=== PATIENT | female | born 1960 | race Caucasian/White ===

== ENCOUNTER → 2016-05-21 | Outpatient (CLI) | payer BC ==
--- NOTE | 2016-05-21 15:00 | CT ---
EXAMINATION TYPE: CT sinus wo con DATE OF EXAM: 05/21/2016 2:56 PM COMPARISON: NONE HISTORY: 55-year-old female with chronic sinusitis CT DLP: 686.41 mGycm Automated exposure control for dose reduction was used. TECHNIQUE: Noncontrast axial views of the paranasal sinuses were obtained. Coronal reconstructions pe rformed. FINDINGS: Tiny 6 mm polyp or mucosal retention cyst along the lateral wall of the left maxillary sinus. There i s trace mucosal thickening along the anterior ethmoid air cells and roof of the left maxillary sinus with postsurgical changes of prior medial antrectomies. Additional resection extends to involve the s epta of the ethmoid air cells. There is no air-fluid level. Reactive hamzah- osteogenesis is not seen. There is no destruction of the osseous lucio of the paranasal sinuses. The osteomeatal complexes are widely patent. The imaged brain, sella, skull base and orbits are normal in appearance. Mastoid air cells and middle ear cavities are well pneumatized. Reformatted images confirm above findings. IMPRESSION: Prior FESS. Tiny 6 mm polyp or mucosal retention cyst left maxillary sinus with trace mucosal thicken ing along the sinus roof and within the anterior ethmoid air cells.
== END | disposition home or self-care (01) ==
LOC: RADCTMAIN 14:37
PROVIDERS: ATTEND Nurse Practitioner Family
DX: J34.89 Other specified disorders of nose and nasal sinuses (principal); Z98.890 Other specified postprocedural states
CPT/HCPCS: 70486

== ENCOUNTER → 2016-09-28 | Outpatient (CLI) | payer BC ==
[2016-09-28 11:57] LABS: Calcium 9.9 mg/dL (8.4-10.2); Magnesium 1.9 mg/dL (1.6-2.3)
== END | disposition home or self-care (01) ==
LOC: LABWHC1 10:31
PROVIDERS: ATTEND Internal Medicine Endocrinology, Diabetes & Metabolism
DX: E03.9 Hypothyroidism, unspecified (principal); E55.9 Vitamin D deficiency, unspecified; E06.3 Autoimmune thyroiditis
CPT/HCPCS: 36415; 82040; 82306; 82310; 83735; 84439; 84443; 84481

== ENCOUNTER → 2016-12-18 | Outpatient (CLI) | payer BC ==
--- NOTE | 2016-12-18 11:24 | BD ---
EXAMINATION TYPE: MG DEXA axial skeleton. DATE OF EXAM: 12/18/2016 COMPARISON: NONE CLINICAL HISTORY: POST MENOPAUSAL Height: 5'6 1/2 Weight: 144 FRAX RISK QUESTIONS: Alcohol (3 or more units per day): no Family History (Parent hip fracture): no Glucocorticoids (More than 3mos): no (Ex: prednisone, prednisolone, methylprednisolone, dexamethasone, and hydrocortisone). History of Fracture in Adulthood: yes Secondary Osteoporosis: 1. Type 1 Diabetes: no 2. Hyperthyroidism: no 3. Menopause before 45: no 4. Malnutrition: no 5. Chronic liver disease: no Rheumatoid Arthritis: no Current Tobacco Use: no RISK FACTORS HISTORY OF: Family History of Osteoporosis: Postmenopausal woman: MEDICATIONS: Thyroid Medications: Which medication: tetroxin How Lon years Additional Medications: xanax vitamin d Additional History: post menopausal EXAM MEASUREMENTS: Bone mineral densitometry was performed using the [employer]. Bone mineral density as measured about the Lumbar spine is: ----- L1-L4(G/cm2): 0.938 T Score Values are as follows: ----- L2: -2.2 ----- L3: -1.6 ----- L4: -2.5 ----- L1-L4: -2.0 Bone mineral density has: Decreased -5.1% since study of: 07/04/2014 Bone mineral density about the R hip (g/cm2): 0.788 Bone mineral density about the L hip (g/cm2): 0.814 T Score values are as follows: -----R Neck: -1.8 -----L Neck: -1.6 -----R Total: -2.0 -----L Total: -1.8 Bone mineral density has: Decreased -8.2% since study of: 07/04/2014 IMPRESSION: Osteopenia (T Score between -2.5 and -1 as noted by T score values L1-L4, Robin Hips There is slightly increased risk of fracture and the patient may be considered for treatment. Re-Screen 2-5 years. NOTE: T-SCORE=SD OF THE YOUNG ADULT MEAN.
== END | disposition home or self-care (01) ==
LOC: RADBDWWP 08:37
PROVIDERS: ATTEND Obstetrics & Gynecology
DX: M85.88 Other specified disorders of bone density and structure, other site (principal)
CPT/HCPCS: 77080

== ENCOUNTER → 2017-05-16 | Outpatient (CLI) | payer BC ==
[2017-05-16 08:15] LABS: Calcium 9.9 mg/dL (8.4-10.2)
[2017-05-16 08:29] LABS: T4, Free (Free Thyroxine) 1.1 ng/dL (0.78-2.19)
== END | disposition home or self-care (01) ==
LOC: LABWHC1 07:37
PROVIDERS: ATTEND Internal Medicine Endocrinology, Diabetes & Metabolism
DX: E03.9 Hypothyroidism, unspecified (principal); E06.3 Autoimmune thyroiditis; E55.9 Vitamin D deficiency, unspecified
CPT/HCPCS: 36415; 82310; 83970; 84439; 84443

== ENCOUNTER → 2017-08-13 | Outpatient (CLI) | payer BC ==
[2017-08-13 17:11] LABS: DHEA Sulfate 25.2 ug/dL (26.0-430.0)
[2017-08-13 18:04] LABS: ACTH 13.2 pg/mL (0.00-45.99)
== END ==
LOC: LABWHC1 08:08
PROVIDERS: ATTEND Internal Medicine Endocrinology, Diabetes & Metabolism
DX: R53.83 Other fatigue (principal)
CPT/HCPCS: 36415; 82024; 82533; 82607; 82627; 84146

== ENCOUNTER → 2018-02-10 | Outpatient (CLI) | payer BC ==
--- NOTE | 2018-02-10 09:59 | XR ---
EXAMINATION TYPE: XR chest 2V DATE OF EXAM: 02/10/2018 COMPARISON: 10/24/2010 HISTORY: Chronic sinusitis and cough for 3 weeks TECHNIQUE: Frontal and lateral views of the chest are obtained. FINDINGS: There is no focal air space opacity, pleural effusion, or pneumothorax seen. The cardiac silhouette size is within normal limits. The osseous structures are intact. Minimal multilevel dege nerative changes of the thoracic spine are noted. IMPRESSION: No acute cardiopulmonary process.
== END | disposition home or self-care (01) ==
LOC: RADXRMAIN 09:27
PROVIDERS: ATTEND Otolaryngology
DX: R05 Cough (principal)
CPT/HCPCS: 71046

== ENCOUNTER → 2018-02-18 | Outpatient (CLI) | payer BC | END | disposition home or self-care (01) | LOC: LABWHC1 07:56 | PROVIDERS: ATTEND Internal Medicine Endocrinology, Diabetes & Metabolism | DX: E03.9 Hypothyroidism, unspecified (principal) | CPT/HCPCS: 36415; 84443 ==

== ENCOUNTER → 2018-03-02 | Outpatient (CLI) | payer BC ==
[2018-03-02 11:43] LABS: Basophils % (A) 0 %; Eosinophils % (A) 1 %; HCT 42.3 % (34.0-46.0); HGB 13.6 gm/dL (11.4-16.0); Lymphocytes # (A) 1.3 k/uL (1.0-4.8); Lymphocytes % (A) 25 %; MCH 29.3 pg (25.0-35.0); MCHC 32.3 g/dL (31.0-37.0); MCV 90.9 fL (80.0-100.0); Mean Platelet Volume 6.7; Monocytes # (A) 0.3 k/uL (0-1.0); Monocytes % (A) 5 %; Neutrophils # (A) 3.5 k/uL (1.3-7.7); Neutrophils % (A) 67 %; Platelet Count 326 k/uL (150-450); RBC 4.65 m/uL (3.80-5.40); WBC 5.2 k/uL (3.8-10.6)
[2018-03-02 16:39] LABS: Immunoglobulin E 34.9 IU/mL (0.00-114.00)
[2018-03-02 19:09] LABS: Hemoglobin A1C 5.7 % (4.0-6.0)
[2018-03-03 09:58] LABS: Immunoglobulin M 94.2 mg/dL (40.0-280.0)
== END ==
LOC: LABWHC1 10:43
PROVIDERS: ATTEND Otolaryngology
DX: J30.89 Other allergic rhinitis (principal); R05 Cough
CPT/HCPCS: 36415; 82784; 82785; 82947; 83036; 85025

== ENCOUNTER → 2018-03-24 | Outpatient (CLI) | payer BC ==
[2018-03-24 09:45] LABS: Basophils % (A) 1 %; Eosinophils # (A) 0.1 k/uL (0-0.7); Eosinophils % (A) 2 %; HCT 42.6 % (34.0-46.0); HGB 13.4 gm/dL (11.4-16.0); Lymphocytes # (A) 1.7 k/uL (1.0-4.8); Lymphocytes % (A) 33 %; MCH 28.8 pg (25.0-35.0); MCHC 31.4 g/dL (31.0-37.0); MCV 91.6 fL (80.0-100.0); Mean Platelet Volume 6.7; Monocytes # (A) 0.3 k/uL (0-1.0); Monocytes % (A) 6 %; Neutrophils # (A) 3.1 k/uL (1.3-7.7); Neutrophils % (A) 57 %; Platelet Count 371 k/uL (150-450); RBC 4.65 m/uL (3.80-5.40); RDW 12.9 % (11.5-15.5); WBC 5.3 k/uL (3.8-10.6)
[2018-03-24 15:58] LABS: Albumin 4.6 g/dL (3.80-4.90); Albumin/Globulin Ratio 2.09 (1.20-2.10); Anion Gap 8.1 mmol/L (4.00-12.00); Calcium 9.8 mg/dL (8.7-10.3); Carbon Dioxide 27.9 mmol/L (21.6-31.8); Globulin 2.2 g/dL (2.1-3.7); LDL Cholesterol,Calculated 70.2 mg/dL (0.0-131.0); Magnesium 1.8 mg/dL (1.5-2.4); Potassium 4.1 mmol/L (3.5-5.5); Total Bilirubin 0.7 mg/dL (0.3-1.2); Total Protein 6.8 g/dL (6.2-8.2); VLDL Calculation 10.8 mg/dL (5.00-40.00)
[2018-03-24 16:05] LABS: T4, Free (Free Thyroxine) 1.3 ng/dL (0.80-1.80)
== END ==
LOC: LABWHC1 08:13
PROVIDERS: ATTEND Midwife
DX: Z00.00 Encounter for general adult medical examination without abnormal findings (principal); E03.9 Hypothyroidism, unspecified; E06.3 Autoimmune thyroiditis; E55.9 Vitamin D deficiency, unspecified
CPT/HCPCS: 36415; 80053; 80061; 82306; 83735; 84439; 84443; 84481; 85025

== ENCOUNTER → 2018-04-30 | Outpatient (CLI) | payer BC ==
[2018-04-30 18:00] LABS: T4, Free (Free Thyroxine) 1.3 ng/dL (0.80-1.80)
== END ==
LOC: LABWHC1 07:35
PROVIDERS: ATTEND Internal Medicine Endocrinology, Diabetes & Metabolism
DX: E06.3 Autoimmune thyroiditis (principal); E03.9 Hypothyroidism, unspecified; E55.9 Vitamin D deficiency, unspecified; E78.2 Mixed hyperlipidemia; K71.9 Toxic liver disease, unspecified; E86.0 Dehydration
CPT/HCPCS: 36415; 84439; 84443; 84481

== ENCOUNTER 2018-05-18 09:30 | Day surgery (SDC) | payer BC ==
[2018-05-14 12:05] VITALS: BMI 21.9
[~2018-05-18 09:30] MED LIST: LACTATED RINGERS 1,000 ML IV SCH
[2018-05-18] MEDS ORDERED: LIDOCAINE 1% 20 ML VIAL (10MG/ML) FOR IV START INTRADERMA ONE (10:00)
[2018-05-18 10:03] VITALS: TEMP 98.5
[2018-05-18] MEDS ORDERED: ONDANSETRON 4 MG/2 ML VIAL IVP ONE (10:06)
[2018-05-18] MEDS ORDERED: PROPOFOL 10 MG/ML 20 ML VIAL IV ONE (10:58)
[2018-05-18 11:35] VITALS: RESP 18
--- NOTE | 2018-05-18 11:38 | P.PCN ---
Date of Procedure: 05/18/18 Procedure(s) Performed: Procedure: 1. Esophagogastroduodenoscopy and biopsy. 2. Total colonoscopy. Preoperative diagnosis: Screening for colon cancer because of family history of colon cancer in her father and upper endoscopy for finding of a positive celiac serology. Postoperative diagnosis: 1. Mild gastritis and duodenitis. 2. Multiple biopsies obtained from the duodenum, antrum and esophagus. 3. Mild sigmoid diverticulosis with no evidence of acute diverticulitis or strictures or any polyps or tumors. Preparation: HalfLytely prep. Sedation: Was provided by anesthesia. Brief clinical history: The patient is a 57-year-old female who is scheduled for this evaluation for colon cancer screening because of family history of colon cancer in her father. Her prior exam was around 6 years ago. The patient , in addition, has been complaining of tiredness for the last 2 years or so and has history of Rosita's thyroiditis and her fundraising coordinator has ordered celiac serology panel which returned positive antigliadin antibody. This evaluation is to assess for celiac disease, colon neoplasia or other pathology. Procedure: With the patient on her left lateral decubitus position and after informed consent and adequate sedation, I passed the Olympus-GIF H1 90 video upper endoscope through the cricopharyngeus down the esophagus. GE junction was around 40 cm from the incisors and there was no definite hiatal hernia and no obvious esophagitis or complicated reflux disease. The endoscope was then passed into the stomach which was insufflated with air and inspected in detail including the retroflex view in the cardia. There was some mottling and erythema in the antrum but no ulcers or erosions. Pyloric channel did not show any ulcers. Duodenal bulb, post bulbar area and descending duodenum showed minimal erythema and minimal friability. I obtained biopsies from the duodenum , antrum and esophagus then the endoscope was withdrawn and I proceeded to perform the colonoscopy. Perianal area did not show any fissures or fistulas. There were no masses felt on digital rectal examination. The Olympus CFH 190L video colonoscope was then inserted in the rectum in the usual fashion and advanced to the cecum. There was few small diverticular orifices seen scattered in the sigmoid but I saw no evidence of acute diverticulitis or strictures. The mucosa appeared healthy. No polyps or tumors were seen. I retroflexed the endoscope in the rectum before the endoscope was withdrawn. The patient tolerated the procedure well. Plan: The patient was reassured. Discussed dietary measures. Will await biopsy results. I recommended repeat colonoscopy in 5 years because of her family history. She will follow-up with you as planned and I will be happy to see in the office if needed.
[2018-05-18 11:56] VITALS: BP 126/76; PULSE 77
== END 2018-05-18 12:12 | disposition home or self-care (01) ==
LOC: ORWHC2ENDO 09:30
DX: Z12.11 Encounter for screening for malignant neoplasm of colon (principal); K29.50 Unspecified chronic gastritis without bleeding; K29.80 Duodenitis without bleeding; K57.30 Diverticulosis of large intestine without perforation or abscess without bleeding; Z80.0 Family history of malignant neoplasm of digestive organs; R76.8 Other specified abnormal immunological findings in serum; E06.3 Autoimmune thyroiditis; F41.9 Anxiety disorder, unspecified; Z79.890 Hormone replacement therapy; Z79.899 Other long term (current) drug therapy
CPT/HCPCS: 88305; 43239; J2405; J2704; G0105; 45378

== ENCOUNTER → 2018-11-02 | Outpatient (CLI) | payer BC ==
[2018-11-02 17:51] LABS: T4, Free (Free Thyroxine) 1.3 ng/dL (0.80-1.80)
== END | disposition home or self-care (01) ==
LOC: LABWHC1 09:15
PROVIDERS: ATTEND Internal Medicine Endocrinology, Diabetes & Metabolism
DX: E06.3 Autoimmune thyroiditis (principal); K90.0 Celiac disease
CPT/HCPCS: 36415; 84439; 84443; 84481

== ENCOUNTER → 2018-11-10 | Outpatient (CLI) | payer BC ==
[2018-11-10 20:46] LABS: Iron Saturation 19.25 (12.00-45.00)
[2018-11-11 10:36] LABS: Lead, Blood 0.7 ug/dL (<5.0)
== END | disposition home or self-care (01) ==
LOC: LABWHC1 08:36
PROVIDERS: ATTEND Internal Medicine Endocrinology, Diabetes & Metabolism
DX: E06.3 Autoimmune thyroiditis (principal); E03.9 Hypothyroidism, unspecified; E55.9 Vitamin D deficiency, unspecified; Z13.0 Encounter for screening for diseases of the blood and blood-forming organs and certain disorders involving the immune mechanism
CPT/HCPCS: 36415; 82108; 82175; 82728; 83540; 83550; 83655; 83825; 84207; 84255; 85652; 86140

== ENCOUNTER → 2019-01-26 | Outpatient (CLI) | payer BC ==
[2019-01-26 15:58] LABS: T4, Free (Free Thyroxine) 0.9 ng/dL (0.80-1.80)
== END ==
LOC: LABWHC1 09:29
PROVIDERS: ATTEND Internal Medicine Endocrinology, Diabetes & Metabolism
DX: E06.3 Autoimmune thyroiditis (principal); E03.9 Hypothyroidism, unspecified; E55.9 Vitamin D deficiency, unspecified; Z13.0 Encounter for screening for diseases of the blood and blood-forming organs and certain disorders involving the immune mechanism
CPT/HCPCS: 36415; 82306; 84439; 84443; 84481

== ENCOUNTER → 2019-04-02 | Outpatient (CLI) | payer BC ==
[2019-04-02 09:54] LABS: Basophils % (A) 0 %; Eosinophils # (A) 0.1 k/uL (0-0.7); Eosinophils % (A) 1 %; HCT 42.7 % (34.0-46.0); HGB 14.2 gm/dL (11.4-16.0); Lymphocytes # (A) 1.6 k/uL (1.0-4.8); Lymphocytes % (A) 29 %; MCH 31.1 pg (25.0-35.0); MCHC 33.4 g/dL (31.0-37.0); Mean Platelet Volume 6.7; Monocytes # (A) 0.4 k/uL (0-1.0); Monocytes % (A) 6 %; Neutrophils # (A) 3.4 k/uL (1.3-7.7); Neutrophils % (A) 62 %; Platelet Count 369 k/uL (150-450); RBC 4.59 m/uL (3.80-5.40); RDW 12.3 % (11.5-15.5); WBC 5.5 k/uL (3.8-10.6)
[2019-04-02 16:14] LABS: ALT 14 U/L (8-44); AST 18 U/L (13-35); African American GFR (CKD) 92.9 (60.0-200.0); Albumin/Globulin Ratio 2.05 (1.60-3.17); Alkaline Phosphatase 81 U/L (41-126); Calcium 9.4 mg/dL (8.7-10.3); Carbon Dioxide 31.2 mmol/L (21.6-31.8); Chloride 104 mmol/L (96-109); Chol/HDL Ratio 1.75; Cholesterol 159 mg/dL (0-200); Globulin 2.2 g/dL (1.6-3.3); Glucose 94 mg/dL (70-110); Non-African American GFR(CKD) 80.1 (60.0-200.0); Potassium 4.4 mmol/L (3.5-5.5); Sodium 142 mmol/L (135-145); Total Bilirubin 0.7 mg/dL (0.3-1.2); Total Protein 6.7 g/dL (6.2-8.2); Triglycerides <50.0 mg/dL (0.0-149.0)
== END | disposition home or self-care (01) ==
LOC: LABWHC1 09:14
PROVIDERS: ATTEND Internal Medicine Endocrinology, Diabetes & Metabolism
DX: Z13.0 Encounter for screening for diseases of the blood and blood-forming organs and certain disorders involving the immune mechanism (principal); E03.9 Hypothyroidism, unspecified; E06.3 Autoimmune thyroiditis; E55.9 Vitamin D deficiency, unspecified
CPT/HCPCS: 36415; 80053; 80061; 82306; 84439; 84443; 84481; 85025

== ENCOUNTER → 2019-06-02 | Outpatient (CLI) | payer BC ==
--- NOTE | 2019-06-02 15:43 | BD ---
EXAMINATION TYPE: Axial Bone Density DATE OF EXAM: 06/02/2019 COMPARISON: 12/18/2016 CLINICAL HISTORY: Height: 66 IN Weight: 142 LBS RISK FACTORS HISTORY OF: Family History of Osteoporosis: YES GRANDMOTHER (M) Active: YES Diet low in dairy products/other sources of calcium: YES Postmenopausal woman: TOTAL HYST AGE 45 Take estrogen and/or progesterone medications: NOT NOW How long: AGE 47-50 MEDICATIONS: Thyroid Medications: YES Which medication: TIROSENT CYTOMEL How Lon + YEARS Additional Medications: TIROSENT, CYTOMEL, VIT D EXAM MEASUREMENTS: Bone mineral densitometry was performed using the [employer] System. Bone mineral density as measured about the Lumbar spine is: ----- L1-L4(G/cm2): 0.896 T Score Values are as follows: ----- L2: -2.5 ----- L3: -2.2 ----- L4: -2.7 ----- L1-L4: -2.4 Bone mineral density has: Decreased -4.6% since study of: 12/18/2016 Bone mineral density about the R hip (g/cm2): 0.801 Bone mineral density about the L hip (g/cm2): 0.810 T Score values are as follows: -----R Neck: -1.7 -----L Neck: -1.6 -----R Total: -2.1 -----L Total: -1.8 Bone mineral density has: Decreased -1.0% since study of: 12/18/2016 IMPRESSION: Osteoporosis (T Score less than -2.5). There is increased fracture risk and therapy is usually indicated based on age. Re-Screen 1-2 years. NOTE: T-SCORE=SD OF THE YOUNG ADULT MEAN.
== END | disposition home or self-care (01) ==
LOC: RADBDWWP 12:24
PROVIDERS: ATTEND Obstetrics & Gynecology
DX: M81.0 Age-related osteoporosis without current pathological fracture (principal); Z78.0 Asymptomatic menopausal state
CPT/HCPCS: 77080

== ENCOUNTER 2019-10-20 20:31 | Emergency (ER) | payer BC ==
--- NOTE | 2019-10-20 21:11 | XR ---
EXAMINATION TYPE: XR wrist complete RT DATE OF EXAM: 10/20/2019 COMPARISON: NONE HISTORY: Fall. Pain. TECHNIQUE: 4 views FINDINGS: IMPRESSION: There is impacted transverse fracture of the distal radial metaphysis. There is no significant displa cement. The carpal bones are intact. There is mild spurring at the first carpometacarpal joint. Metac arpals are intact. IMPRESSION: Acute intra-articular impacted comminuted transverse fracture of the distal radial metaphysis.
--- NOTE | 2019-10-20 21:14 | ED ---
Upper Extremity HPI - General Source: patient Mode of arrival: ambulatory Limitations: no limitations <Gladys Chen - Last Filed: 10/22/19 10:28> <Norma Reyes - Last Filed: 10/25/19 00:46> - General Chief Complaint: Extremity Injury, Upper Stated Complaint: fall/wrist pain Time Seen by Provider: 10/20/19 20:43 - History of Present Illness Initial Comments: 58-year-old female presenting today for chief complaint of right wrist pain. Patient states that she was getting up the ball onto the dock when she fell. Patient states that she extended her right wrist. Patient states she did not hit her head or lose consciousness. Patient denies any injury to the neck abdomen chest lower extremities or left upper extremity. Patient denies any numbness tingling loss of sensation. She states she has limited range of motion of the wrist secondary to pain. Patient states she is able to move all 5 digits of the right hand. Remaining review of systems negative upon arrival patient appears well signs of acute distress. Splinting wrist. (lGadys Chen) - Related Data Home Medications Medication Instructions Recorded Confirmed ALPRAZolam [Xanax] 0.5 mg PO DAILY PRN 05/14/18 10/20/19 Levothyroxine Sodium [Tirosint] 88 mcg PO DAILY 05/14/18 10/20/19 Allergies Allergy/AdvReac Type Severity Reaction Status Date / Time No Known Allergies Allergy Verified 10/20/19 20:41 Review of Systems ROS Other: All systems not noted in ROS Statement are negative. <Gladys Chen - Last Filed: 10/22/19 10:28> ROS Other: All systems not noted in ROS Statement are negative. <Norma Reyes - Last Filed: 10/25/19 00:46> ROS Statement: Those systems with pertinent positive or pertinent negative responses have been documented in the HPI. Past Medical History Past Medical History: Thyroid Disorder Additional Past Medical History / Comment(s): was told has 1 out of 4 antibodies for Celiac, carries gene for MTHFR, Rosita's History of Any Multi-Drug Resistant Organisms: None Reported Past Surgical History: Breast Surgery, Hysterectomy, Tonsillectomy, Tubal Ligation Additional Past Surgical History / Comment(s): sinus sx x2, mult benign breast bx left breast Past Anesthesia/Blood Transfusion Reactions: Postoperative Nausea & Vomiting (PONV) Past Psychological History: No Psychological Hx Reported Smoking Status: Never smoker Past Alcohol Use History: Occasional Past Drug Use History: None Reported - Past Family History Father Family Medical History: Cancer Additional Family Medical History / Comment(s): colon Mother Family Medical History: Deep Vein Thrombosis (DVT) <Gladys Chen - Last Filed: 10/22/19 10:28> General Exam Limitations: no limitations <Gladys Chen - Last Filed: 10/22/19 10:28> - General Exam Comments Initial Comments: General: The patient is awake and alert, in no distress Eye: +3 mm pupils are equal, round and reactive to light, extra-ocular movements are intact. No nystagmus. There is normal conjunctiva bilaterally. No signs of icterus. Ears, nose, mouth and throat: There are moist mucous membranes and no oral lesions. Neck: The neck is supple, there is no tenderness or JVD. Musculoskeletal: Upon inspection no gross deformity of the wrist. Compartments are soft and compressible of the right forearm/wrist. There is some mild scaphoid tenderness Refuses to rull range at the right wrist secondary to pain. No evidence of gross trauma. Able to move all 5 digits of the hand without any limitations in range of motion. Strength of the digits of her hand intact elbow and shoulder. Patient sustained past the right wrist pain Sensation intact proximal and distal to injury site. Radial pulses equal bilaterally 2+. Neurological: A&O x 3. CN II-XII intact grossly, There are no obvious motor or sensory deficits. Coordination appears grossly intact. Speech is normal. Skin: Skin is warm and dry and no rashes or lesions are noted. Psychiatric: Cooperative, appropriate mood & affect, normal judgment. (Gldays Chen) Course Vital Signs 10/20/19 20:37 Temperature 98.4 F Pulse Rate 74 Respiratory 16 Rate Blood Pressure 125/84 O2 Sat by Pulse 99 Oximetry Medical Decision Making <Gladys Chen - Last Filed: 10/22/19 10:28> <Norma Reyes - Last Filed: 10/25/19 00:46> - Medical Decision Making XR revealed a comminuted distal radius fracture, some displacement noted--intraarticular. Patient neurovascularly intact. Compartments soft and compressible. No pain out of proportion. Patient placed in a thumb spica splint and a clean for comfort. Repeat neurovascular exam after splint placement was intact. No change. Patient will be discharged with orthopedic f/u. Patient is agreeable to return parameters and outpatient f/u. Discharged appearing well after discussing case with Dr. Reyes (Gladys Chen) I was available for consultation in the emergency department. The history and physical exam were done by the midlevel provider. I was consulted for this patients care. I reviewed the case with the midlevel provider and based on their presentation of the patient, I agree with the assessment, medical decision making and plan of care as documented. Chart was dictated using [employer] dictation software. Attempts were made to c orrect any dictation errors however some typographical errors may persist. Patient was seen during a national state of emergency due to the Covid-19 pandemic. (Norma Reyes) Disposition Is patient prescribed a controlled substance at d/c from ED?: No Time of Disposition: 21:23 <Gladys Chen - Last Filed: 10/22/19 10:28> <Norma Reyes - Last Filed: 10/25/19 00:46> Clinical Impression: Distal radius fracture, Fracture of right distal radius, Fall Disposition: HOME SELF-CARE Condition: Good Instructions (If sedation given, give patient instructions): Wrist Fracture in Adults (ED) Additional Instructions: Please use medication as discussed. Please follow-up with orthopedics in the next 2-3 days with [facility]. Please return to emergency room if the symptoms increase or worsen or for any other concerns. Referrals: Ángel Sanchez MD [Primary Care Provider] - 1-2 days Scot Chaudhari DO [Doctor of Osteopathic Medicine] - 1-2 days
[2019-10-22 09:42] VITALS: BP 125/84; PULSE 74; RESP 16; TEMP 98.4
== END 2019-10-20 21:40 | disposition home or self-care (01) ==
LOC: EC 20:31
DX: S52.501A Unspecified fracture of the lower end of right radius, initial encounter for closed fracture (principal); E07.9 Disorder of thyroid, unspecified; Z79.890 Hormone replacement therapy; W19.XXXA Unspecified fall, initial encounter; Y92.89 Other specified places as the place of occurrence of the external cause
CPT/HCPCS: 29125; 99283

== ENCOUNTER → 2019-10-27 | Outpatient (CLI) | payer BC ==
[2019-10-27 19:51] LABS: T4, Free (Free Thyroxine) 1.2 ng/dL (0.80-1.80)
== END | disposition home or self-care (01) ==
LOC: LABWHC1 09:10
PROVIDERS: ATTEND Internal Medicine Endocrinology, Diabetes & Metabolism
DX: E03.9 Hypothyroidism, unspecified (principal); E06.3 Autoimmune thyroiditis; E55.9 Vitamin D deficiency, unspecified; Z13.0 Encounter for screening for diseases of the blood and blood-forming organs and certain disorders involving the immune mechanism
CPT/HCPCS: 36415; 82306; 84439; 84443; 84481

== ENCOUNTER → 2020-01-20 | Outpatient (CLI) | payer BC ==
[2020-01-20 18:22] LABS: T4, Free (Free Thyroxine) 1.2 ng/dL (0.80-1.80)
== END | disposition home or self-care (01) ==
LOC: LABWHC1 08:16
PROVIDERS: ATTEND Internal Medicine Endocrinology, Diabetes & Metabolism
DX: E78.2 Mixed hyperlipidemia (principal); E03.9 Hypothyroidism, unspecified; K71.9 Toxic liver disease, unspecified; E55.9 Vitamin D deficiency, unspecified; M81.6 Localized osteoporosis [Lequesne]
CPT/HCPCS: 36415; 84439; 84443; 84481

== ENCOUNTER → 2020-04-12 | Outpatient (CLI) | payer BC ==
[2020-04-12 09:27] LABS: Basophils % (A) 1 %; Eosinophils # (A) 0.1 k/uL (0-0.7); Eosinophils % (A) 2 %; HCT 37.5 % (34.0-46.0); HGB 12.3 gm/dL (11.4-16.0); Lymphocytes # (A) 1.5 k/uL (1.0-4.8); Lymphocytes % (A) 34 %; MCH 29.5 pg (25.0-35.0); MCV 89.5 fL (80.0-100.0); Mean Platelet Volume 6.4; Monocytes # (A) 0.2 k/uL (0-1.0); Monocytes % (A) 6 %; Neutrophils # (A) 2.3 k/uL (1.3-7.7); Neutrophils % (A) 55 %; Platelet Count 364 k/uL (150-450); RBC 4.18 m/uL (3.80-5.40); RDW 13.4 % (11.5-15.5); WBC 4.3 k/uL (3.8-10.6)
[2020-04-13 06:36] LABS: African American GFR (CKD) 92.2 (60.0-200.0); Albumin 4.4 g/dL (3.80-4.90); Albumin/Globulin Ratio 1.91 (1.60-3.17); Calcium 9.2 mg/dL (8.7-10.3); Chol/HDL Ratio 1.88; Globulin 2.3 g/dL (1.6-3.3); LDL Cholesterol,Calculated 73.2 mg/dL (0.0-131.0); Non-African American GFR(CKD) 79.6 (60.0-200.0); Total Bilirubin 0.7 mg/dL (0.2-1.2); Total Protein 6.7 g/dL (6.2-8.2); VLDL Calculation 11.8 mg/dL (5.00-40.00)
[2020-04-13 06:44] LABS: T4, Free (Free Thyroxine) 1.2 ng/dL (0.80-1.80)
== END | disposition home or self-care (01) ==
LOC: LABWHC1 08:34
PROVIDERS: ATTEND Internal Medicine Endocrinology, Diabetes & Metabolism
DX: Z00.00 Encounter for general adult medical examination without abnormal findings (principal); E78.2 Mixed hyperlipidemia; E03.9 Hypothyroidism, unspecified; K71.9 Toxic liver disease, unspecified; E55.9 Vitamin D deficiency, unspecified; M81.6 Localized osteoporosis [Lequesne]
CPT/HCPCS: 36415; 80053; 80061; 82306; 84439; 84443; 84481; 85025

== ENCOUNTER → 2020-11-22 | Outpatient (CLI) | payer BC ==
[2020-11-23 04:58] LABS: T4, Free (Free Thyroxine) 1.2 ng/dL (0.80-1.80)
== END | disposition home or self-care (01) ==
LOC: LABWHC1 08:54
PROVIDERS: ATTEND Internal Medicine Endocrinology, Diabetes & Metabolism
DX: E55.9 Vitamin D deficiency, unspecified (principal); E03.9 Hypothyroidism, unspecified; E78.2 Mixed hyperlipidemia; K71.9 Toxic liver disease, unspecified
CPT/HCPCS: 36415; 82306; 84439; 84443; 84481

== ENCOUNTER → 2021-03-26 | Outpatient (CLI) | payer BC ==
[2021-03-26 16:06] LABS: T4, Free (Free Thyroxine) 1.24 ng/dL (0.800-1.800)
== END | disposition home or self-care (01) ==
LOC: LABWHC1 09:38
PROVIDERS: ATTEND Internal Medicine Endocrinology, Diabetes & Metabolism
DX: E03.9 Hypothyroidism, unspecified (principal); E55.9 Vitamin D deficiency, unspecified; E78.2 Mixed hyperlipidemia
CPT/HCPCS: 36415; 82306; 84439; 84443; 84481

== ENCOUNTER → 2021-11-17 | Outpatient (CLI) | payer BC ==
[2021-11-17 17:35] LABS: T4, Free (Free Thyroxine) 1.29 ng/dL (0.800-1.800)
== END ==
LOC: LABWHC1 09:10
PROVIDERS: ATTEND Internal Medicine Endocrinology, Diabetes & Metabolism
DX: E03.9 Hypothyroidism, unspecified (principal); E06.3 Autoimmune thyroiditis; E55.9 Vitamin D deficiency, unspecified; E78.2 Mixed hyperlipidemia
CPT/HCPCS: 36415; 82306; 84439; 84443; 84481

== ENCOUNTER → 2022-02-23 | Outpatient (CLI) | payer BC ==
[2022-02-23 11:56] LABS: T4, Free (Free Thyroxine) 1.28 ng/dL (0.800-1.800)
== END | disposition home or self-care (01) ==
LOC: LABWHC1 08:15
PROVIDERS: ATTEND Internal Medicine Endocrinology, Diabetes & Metabolism
DX: E78.2 Mixed hyperlipidemia (principal); E03.9 Hypothyroidism, unspecified; E06.3 Autoimmune thyroiditis; E55.9 Vitamin D deficiency, unspecified
CPT/HCPCS: 36415; 82306; 84439; 84443; 84481

== ENCOUNTER → 2022-09-02 | Outpatient (CLI) | payer BC ==
--- NOTE | 2022-09-02 22:45 | BD ---
EXAMINATION TYPE: Axial Bone Density DATE OF EXAM: 09/02/2022 CLINICAL HISTORY: 61 years old Female. ICD-10 CODE: R03.9 HYPOTHYROIDISM Height: 62.8 Weight: 136 FRAX RISK QUESTIONS: nothing to note here RISK FACTORS HISTORY OF: hx of rt wrist fx as an adult, History of Wrist Fracture: yes, right wrist as an adult Family History of Osteoporosis: yes, grandmother Active: yes Postmenopausal woman: yes, at age 45 yrs old Take estrogen and/or progesterone medications: yes, in the past for about 2 yrs Hyperparathyroidism: no Adrenal Insufficiency: no MEDICATIONS: Prednisone or other steroids: yes, in the past for asthma, and inflammation 2x yrly Thyroid Medications: yes, tetroxin for about 13 yrs Additional Medications: xanax, vit d, Additional History: hypothyroidism, anxiety, EXAM MEASUREMENTS: Bone mineral densitometry was performed using the [employer] System. Bone mineral density as measured about the Lumbar spine is: ----- L1-L4(G/cm2): 0.819 T Score Values are as follows: ----- L1: -2.6 ----- L2: -3.1 ----- L3: -3.0 ----- L4: -3.4 ----- L1-L4: -3.0 Z Score Values are as follows: ----- L1: -1.0 ----- L2: -1.5 ----- L3: -1.4 ----- L4: -1.8 ----- L1-L4: -1.4 Bone mineral density has: Decreased -8.6% since study of: 06.02.2019 Bone mineral density about the R hip (g/cm2): 0.692 Bone mineral density about the L hip (g/cm2): 0.714 T Score values are as follows: -----R Neck: -2.0 -----L Neck: -2.0 -----R Total: -2.5 -----L Total: -2.3 Z Score values are as follows: -----R Neck: -0.5 -----L Neck: -0.5 -----R Total: -1.3 -----L Total: -1.1 Bone mineral density has: Decreased -7.9% since study of: 06.02.2019 FRAX%s: The graph provided illustrates a 25.4% chance for a major osteoporotic fx and a 4.8% chance f or the hips probability for fx in 10 years time. IMPRESSION: Osteoporosis (T Score less than -2.5). There is increased fracture risk and therapy is usually indicated based on age. Re-Screen 1-2 years. NOTE: T-SCORE=SD OF THE YOUNG ADULT MEAN.
== END | disposition home or self-care (01) ==
LOC: RADBDWWP 10:30
PROVIDERS: ATTEND Internal Medicine Endocrinology, Diabetes & Metabolism
DX: M81.0 Age-related osteoporosis without current pathological fracture (principal); E03.9 Hypothyroidism, unspecified; E06.3 Autoimmune thyroiditis; E55.9 Vitamin D deficiency, unspecified; F41.9 Anxiety disorder, unspecified
CPT/HCPCS: 77080

== ENCOUNTER → 2022-09-19 | Outpatient (CLI) | payer BC ==
[2022-09-19 16:06] LABS: ALT 11 U/L (8-44); AST 14 U/L (13-35); Albumin 4.5 d/dL (3.8-4.9); Albumin/Globulin Ratio 1.88 Ratio (1.60-3.17); Alkaline Phosphatase 79 U/L (41-126); Blood Urea Nitrogen 13.8 mg/dL (9.0-27.0); Calcium 9.3 mg/dL (8.7-10.3); Carbon Dioxide 28.4 mmol/L (21.6-31.8); Chloride 102 mmol/L (96-109); Chol/HDL Ratio 1.83 Ratio; Globulin 2.4 d/dL (1.6-3.3); Glucose 96 mg/dL (70-110); LDL Cholesterol,Calculated 65.3 mg/dL (0.0-131.0); Potassium 4.2 mmol/L (3.5-5.5); Sodium 141 mmol/L (135-145); T4, Free (Free Thyroxine) 1.39 ng/dL (0.80-1.80); Total Bilirubin 0.5 mg/dL (0.3-1.2); Total Protein 6.9 d/dL (6.2-8.2)
[2022-09-19 20:36] LABS: Basophils # (A) 0.04 X 10*3/uL (0.00-0.10); Eosinophils # (A) 0.06 X 10*3/uL (0.04-0.35); Eosinophils % (A) 1.5 %; HCT 39.3 % (37.2-46.3); HGB 12.3 d/dL (12.0-15.0); Lymphocytes # (A) 1.17 X 10*3/uL (0.90-5.00); MCH 29.7 pg (27.0-32.0); MCHC 31.3 d/dL (32.0-37.0); MCV 94.9 FL (80.0-97.0); Mean Platelet Volume 9.4 FL (9.5-12.2); Monocytes # (A) 0.36 X 10*3/uL (0.20-1.00); Monocytes % (A) 8.9 %; NRBC Per 100 WBC 0 X 10*3/uL (0.00-0.01); Neutrophils # (A) 2.38 X 10*3/uL (1.80-7.70); Neutrophils % (A) 58.9 %; Platelet Count 325 X 10*3/uL (140-440); RBC 4.14 X 10*6/uL (4.10-5.20); RDW 12.6 % (11.5-14.5); WBC 4.04 X 10*3/uL (4.50-10.00)
== END | disposition home or self-care (01) ==
LOC: LABWHC1 08:38
PROVIDERS: ATTEND Family Medicine
DX: Z00.00 Encounter for general adult medical examination without abnormal findings (principal)
CPT/HCPCS: 36415; 80053; 80061; 82306; 84439; 84443; 85025

== ENCOUNTER → 2022-10-23 | Outpatient (CLI) | payer BC ==
[2022-10-23 17:10] LABS: Blood Urea Nitrogen 10.9 mg/dL (9.0-27.0); T4, Free (Free Thyroxine) 1.32 ng/dL (0.80-1.80)
[2022-10-23 17:11] LABS: Albumin 4.5 d/dL (3.8-4.9); Calcium 10.1 mg/dL (8.7-10.3)
== END | disposition home or self-care (01) ==
LOC: LABWHC1 08:20
PROVIDERS: ATTEND Internal Medicine Endocrinology, Diabetes & Metabolism
DX: E55.9 Vitamin D deficiency, unspecified (principal); E03.9 Hypothyroidism, unspecified; E06.3 Autoimmune thyroiditis
CPT/HCPCS: 36415; 82040; 82306; 82310; 82565; 83970; 84439; 84443; 84520

== ENCOUNTER → 2023-01-30 | Outpatient (CLI) | payer BC ==
[2023-01-30 18:48] LABS: T4, Free (Free Thyroxine) 1.21 ng/dL (0.80-1.80)
== END | disposition home or self-care (01) ==
LOC: LABWHC1 08:31
PROVIDERS: ATTEND Internal Medicine Endocrinology, Diabetes & Metabolism
DX: E55.9 Vitamin D deficiency, unspecified (principal); E03.9 Hypothyroidism, unspecified; E06.3 Autoimmune thyroiditis
CPT/HCPCS: 36415; 82306; 84439; 84443; 84481

== ENCOUNTER → 2023-07-22 | Outpatient (CLI) | payer BC ==
[2023-07-22 16:17] LABS: T4, Free (Free Thyroxine) 1.23 ng/dL (0.80-1.80)
== END | disposition home or self-care (01) ==
LOC: LABWHC1 11:09
PROVIDERS: ATTEND Internal Medicine Endocrinology, Diabetes & Metabolism
DX: E03.9 Hypothyroidism, unspecified (principal); E06.3 Autoimmune thyroiditis; E55.9 Vitamin D deficiency, unspecified
CPT/HCPCS: 36415; 84439; 84443; 84481

== ENCOUNTER → 2024-08-05 | Outpatient (CLI) | payer MEDICARE ==
[2024-08-06 02:59] LABS: T4, Free (Free Thyroxine) 1.15 ng/dL (0.80-1.80)
== END | disposition home or self-care (01) ==
LOC: LABWHC1 15:34
PROVIDERS: ATTEND Internal Medicine Endocrinology, Diabetes & Metabolism
DX: E03.9 Hypothyroidism, unspecified (principal); E83.52 Hypercalcemia; K71.9 Toxic liver disease, unspecified; M81.0 Age-related osteoporosis without current pathological fracture
CPT/HCPCS: 36415; 84439; 84443; 84481